=== PATIENT | female | born 1985 | race Caucasian/White ===

== ENCOUNTER 2020-03-20 22:01 | Emergency (ER) | payer SELFPAY ==
--- NOTE | 2020-03-20 22:24 | ED.PDOC ---
History of Present Illness - General Time Seen by Provider: 03/20/20 22:13 Source: patient, RN notes reviewed, Vital Signs reviewed Additional Information: 34-year-old female, presents to the ER because of headache, and sensation that she has lost the sense of taste. Patient and son has had some Covid- like symptoms, the symptoms began with her in Halloween, then father started coughing and then today her son as showing fever and runny nose and coughing But does not be in any distress alert joyful playful and able to speak in long complete sentences - History of Present Illness Timing/Duration: other - since halloween Improving Factors: nothing Worsening Factors: nothing Associated Symptoms: fever/chills, headaches Allergies/Adverse Reactions: Allergies NO KNOWN ALLERGY Allergy (Verified 03/20/20 22:35) Review of Systems - Review of Systems Constitutional: States: chills EENTM: States: nose congestion Respiratory: States: short of breath Cardiology: States: no symptoms reported Gastrointestinal/Abdominal: States: no symptoms reported Genitourinary: States: no symptoms reported Musculoskeletal: States: no symptoms reported Skin: States: no symptoms reported Neurological: States: headache Endocrine: States: no symptoms reported Hematologic/Lymphatic: States: no symptoms reported Family Medical History - Family History Mother Family History: No Known Physical Exam - Physical Exam General Appearance: Well Developed, Well Groomed, Well Hydrated, Well Nourished Ears, Nose, Throat: hearing grossly normal, normal ENT inspection, normal pharynx Neck: non-tender, full range of motion, supple, normal inspection Respiratory: chest non-tender, lungs clear, normal breath sounds, no respiratory distress, no accessory muscle use Cardiovascular/Chest: normal peripheral pulses, regular rate, rhythm, no edema, no gallop, no JVD, no murmur Gastrointestinal/Abdominal: normal bowel sounds, non tender, soft, no organomegaly, no pulsatile mass Back Exam: normal inspection, no CVA tenderness, no vertebral tenderness Extremity: normal range of motion, non-tender, normal inspection, no pedal edema, no calf tenderness 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, no motor/sensory deficits, alert, normal mood/affect, oriented x 3 Skin Exam: normal color Lymphatic: no adenopathy Progress - Progress Progress: 34 female With lack or loss of sense of with loss of sensation of taste, headache, symptoms began on Halloween, patient is a former smoker no patient appears alert does not appear in any distress able to speak in long complete sentences no respiratory distress, patient was tested for COVID-19 was positive, patient was instructed to return to the ER if there is any nausea vomiting increased work of breathing respiratory distress I also encouraged her to buy a pulse oximeter and check their oximetry on a daily basis and take if is less than 90% return to the ER immediately, daily needs to quarantine at home until no longer contagious 14 days 03/20/20 22:51 Departure - Departure Clinical Impression: COVID-19 Disposition: Discharge to Home or Self Care Condition: Fair Instructions: Coronavirus Disease 2019 (COVID-19) Diet: resume usual diet
[2020-03-20 22:35] VITALS: TEMP 97.8
[2020-03-20 23:10] VITALS: BP 148/98; O2SAT 100
== END 2020-03-20 23:09 | disposition home or self-care (01) ==
LOC: ER 22:01
DX: U07.1 COVID-19 (principal)